=== PATIENT | male | born 1960 | race African-American/Black ===

== ENCOUNTER 2019-08-03 12:04 | Inpatient (IN) | payer MEDICAID ==
[~2019-08-03] VITALS: Ht 170.2 cm; Wt 53.1 kg
[2019-08-03] VITALS (11 sets, daily range): BP systolic 118–201; BP diastolic 51–149
[2019-08-03] MEDS ORDERED: SODIUM CHLORIDE 0.9% 1,000 ML IV ONE ×2 (12:44→19:03)
[2019-08-03] MEDS ORDERED: LORAZEPAM 2MG/ML CPJ IV ONE ×2 (12:45→18:45)
[2019-08-03 13:35] LABS: HEMATOCRIT. 43.4 % (42.0-52.0); HEMOGLOBIN. 14.6 g/dL (14.0-18.0); MEAN CORPUSCULAR HEMOGLOBIN 35.4 pg (28.0-32.0); MEAN PLATELET VOLUME 9.3 fl (7.4-10.4); PLATELET 98 x1000/uL (130-400); RED BLOOD CELL COUNT 4.13 mill/uL (4.7-6.1); RED CELL DISTRIBUTION WIDTH 12.9 % (11.6-14.6)
[2019-08-03 13:37] LABS: CHLORIDE 103 mEq/L (98-107)
[2019-08-03 13:42] LABS: ETHANOL BLOOD < 10 mg/dL
[2019-08-03 13:50] LABS: CARBAMAZEPINE < 0.5 ug/mL (4-12); PHENOBARBITAL < 2.1 ug/mL (15.0-40.0)
[2019-08-03 14:28] LABS: PLATELET ESTIMATE DECREASED
[2019-08-03] MEDS ORDERED: HALOPERIDOL LACTATE 5MG/ML VIAL IM ONE ×2 (16:30→19:15)
[2019-08-03] MEDS ORDERED: LEVETIRACETAM 1000MG/100ML 100 ML IV ONE (16:30)
[2019-08-03 16:52] LABS: CLARITY URINE CLOUDY (CLEAR); COLOR URINE YELLOW (YELLOW); KETONES URINE NEGATIVE (NEGATIVE); LEUKOCYTE ESTERASE URINE NEGATIVE (NEGATIVE); NITRITE URINE NEGATIVE (NEGATIVE); OCCULT BLOOD URINE 2+ (NEGATIVE); PH URINE 5.5 (4.5-8.0); PROTEIN URINE 2+ (NEGATIVE); SPECIFIC GRAVITY URINE 1.011 (1.005-1.030)
[2019-08-03 17:09] LABS: *BARBITURATES SCREEN URINE NEGATIVE (NEGATIVE); *BENZODIAZEPINES SCREEN URINE PRESUMTIVE POSITIVE (NEGATIVE); *COCAINE SCREEN URINE NEGATIVE (NEGATIVE)
[2019-08-03 17:10] LABS: *AMPHETAMINES SCREEN URINE NEGATIVE (NEGATIVE); CANNABINOID URINE SCREEN PRESUMTIVE POSITIVE (NEGATIVE); METHADONE URINE SCREEN NEGATIVE (NEGATIVE); OPIATES URINE SCREEN NEGATIVE (NEGATIVE); PHENCYCLIDINE URINE SCREEN NEGATIVE (NEGATIVE)
[2019-08-03] MEDS ORDERED: ONDANSETRON HCL 4MG/2ML INJ IV PRN (17:15)
[2019-08-03] MEDS ORDERED: ZOLPIDEM TARTRATE 5MG TABLET PO PRN (17:15)
[2019-08-03] MEDS ORDERED: ACETAMINOPHEN 325MG TABLET PO PRN (17:15)
[2019-08-03] MEDS ORDERED: MAGNESIUM/ALUMINUM HYDROXIDE/SIMETHICONE 30ML UDC PO PRN (17:15)
[2019-08-03] MEDS ORDERED: GUAIFENESIN 200MG/10ML SUGAR FREE UDC PO PRN (17:15)
[2019-08-03] MEDS ORDERED: NITROGLYCERIN 0.4MG TABLET SL SL PRN (17:15)
[2019-08-03] MEDS ORDERED: IPRATROPIUM/ALBUTEROL 0.5-3(2.5)MG/3ML NEB NEB PRN (17:15)
[2019-08-03] MEDS ORDERED: DOCUSATE SODIUM 100MG CAPSULE PO PRN (17:15)
[2019-08-03] MEDS: LORAZEPAM 2MG/ML CPJ IV PRN (18:07)
[2019-08-03] MEDS: CLONIDINE 0.1MG TABLET PO PRN (18:08)
[2019-08-03 18:39] LABS: VITAMIN B12 SERUM 988 pg/mL (211-911)
[2019-08-03 18:40] LABS: FOLIC ACID (FOLATE) SERUM > 20.00 ng/mL (>5.38)
[2019-08-03] MEDS: FAMOTIDINE 20MG TABLET PO SCH (22:00)
[2019-08-03] MEDS ORDERED: LEVETIRACETAM 500MG TABLET PO SCH (22:00)
[2019-08-03] MEDS: LEVETIRACETAM 500 MG in SODIUM CHLORIDE 0.9% 100 ML IV SCH (23:32)
[2019-08-04] VITALS (84 sets, daily range): BP systolic 102–198; BP diastolic 49–152
[2019-08-04] MEDS: LORAZEPAM 2MG/ML CPJ IV PRN ×4 (00:07→20:31)
[2019-08-04] MEDS: DILTIAZEM HCL 125 MG in DEXT 5% WATER 100 ML IV PRN ×2 (00:52→22:14)
[2019-08-04] MEDS: KETOROLAC 15MG/ML VIAL IV PRN ×2 (01:28→20:32)
[2019-08-04] MEDS: HALOPERIDOL LACTATE 5MG/ML VIAL IM PRN ×3 (01:28→20:58)
[2019-08-04] MEDS: DEXT 5%/0.9% NACL 1,000 ML IV SCH ×2 (03:30→11:57)
[2019-08-04] MEDS: DILTIAZEM HCL 60MG TABLET PO SCH ×2 (05:32)
[2019-08-04] MEDS: LEVETIRACETAM 500 MG in SODIUM CHLORIDE 0.9% 100 ML IV SCH ×2 (08:41→20:33)
[2019-08-04] MEDS ORDERED: ENOXAPARIN 40MG/0.4ML SYR SUBCUT SCH (09:00)
[2019-08-04 11:42] LABS: BASOPHILS % 0.4 % (0.0-2.0); EOSINOPHILS % 0.1 % (0.0-5.0); HEMATOCRIT. 39.3 % (42.0-52.0); HEMOGLOBIN. 13.2 g/dL (14.0-18.0); LYMPHOCYTES % 13.1 % (20.0-50.0); MEAN CORPUSCULAR VOLUME 104.4 fL (80.0-94.0); MEAN PLATELET VOLUME 9.7 fl (7.4-10.4); MONOCYTES % 10.8 % (2.0-8.0); NEUTROPHILS % 75.6 % (40.0-76.0); PLATELET 70 x1000/uL (130-400); RED BLOOD CELL COUNT 3.76 mill/uL (4.7-6.1); RED CELL DISTRIBUTION WIDTH 12.7 % (11.6-14.6)
[2019-08-04 11:54] LABS: CHLORIDE 111 mEq/L (98-107)
[2019-08-04] MEDS: FAMOTIDINE 20MG TABLET PO SCH (11:58)
[2019-08-04] MEDS: ASPIRIN 325MG EC TABLET PO SCH (11:59)
[2019-08-04 12:00] LABS: PHOSPHORUS 2.2 mg/dL (2.5-4.9)
[2019-08-04] MEDS ORDERED: POTASSIUM PHOS,M-BASIC-D-BASIC 15 MMOL in DEXT 5% WATER 245 ML IV NR (16:30)
[2019-08-04] MEDS ORDERED: MAGNESIUM 2 G PREMIX 50 ML IV NR (17:00)
[2019-08-04] MEDS: FAMOTIDINE 20MG/2ML VIAL IV SCH (20:31)
[2019-08-05] VITALS (64 sets, daily range): BP systolic 101–161; BP diastolic 43–100
[2019-08-05] MEDS: LORAZEPAM 2MG/ML CPJ IV PRN ×2 (01:47→23:12)
[2019-08-05] MEDS ORDERED: ATROPINE SULFATE 1MG/ML VIAL IV PRN (02:30)
[2019-08-05] MEDS: ASPIRIN 325MG EC TABLET PO SCH (10:05)
[2019-08-05] MEDS: FAMOTIDINE 20MG/2ML VIAL IV SCH (10:05)
[2019-08-05] MEDS: DEXT 5%/0.9% NACL 1,000 ML IV SCH ×2 (10:05→16:07)
[2019-08-05 10:28] LABS: BASOPHILS % 0.2 % (0.0-2.0); HEMATOCRIT. 39.5 % (42.0-52.0); HEMOGLOBIN. 13.4 g/dL (14.0-18.0); MEAN CORPUSCULAR HEMOGLOBIN 35.6 pg (28.0-32.0); MEAN CORPUSCULAR VOLUME 105.4 fL (80.0-94.0); MONOCYTES % 6.7 % (2.0-8.0); NEUTROPHILS % 82.1 % (40.0-76.0); RED BLOOD CELL COUNT 3.75 mill/uL (4.7-6.1); RED CELL DISTRIBUTION WIDTH 12.7 % (11.6-14.6)
[2019-08-05 10:33] LABS: CHLORIDE 111 mEq/L (98-107)
[2019-08-05 10:45] LABS: PHOSPHORUS 1.6 mg/dL (2.5-4.9)
[2019-08-05] MEDS: LEVETIRACETAM 500 MG in SODIUM CHLORIDE 0.9% 100 ML IV SCH ×2 (11:07→21:08)
[2019-08-05 12:30] LABS: MEAN PLATELET VOLUME 9.3 fl (7.4-10.4); PLATELET 52 x1000/uL (130-400)
[2019-08-05] MEDS ORDERED: POTASSIUM PHOS,M-BASIC-D-BASIC 30 MMOL in DEXT 5% WATER 500 ML IV ONE (12:30)
[2019-08-05] MEDS: DILTIAZEM HCL 60MG TABLET PO SCH ×2 (14:01→21:10)
[2019-08-06] VITALS (46 sets, daily range): BP systolic 114–171; BP diastolic 32–109
[2019-08-06] MEDS: HALOPERIDOL LACTATE 5MG/ML VIAL IM PRN (02:30)
[2019-08-06] MEDS: DILTIAZEM HCL 60MG TABLET PO SCH ×3 (05:57→21:06)
[2019-08-06] MEDS: DEXT 5%/0.9% NACL 1,000 ML IV SCH (05:59)
[2019-08-06] MEDS: ASPIRIN 325MG EC TABLET PO SCH (08:22)
[2019-08-06] MEDS: FAMOTIDINE 20MG/2ML VIAL IV SCH (08:22)
[2019-08-06] MEDS: NICOTINE 14MG PATCH TD SCH (08:23)
[2019-08-06] MEDS: LEVETIRACETAM 500 MG in SODIUM CHLORIDE 0.9% 100 ML IV SCH ×2 (08:23→21:06)
[2019-08-06] MEDS: LORAZEPAM 2MG/ML CPJ IV PRN (17:19)
[2019-08-07] VITALS (45 sets, daily range): BP systolic 128–182; BP diastolic 40–129
[2019-08-07] MEDS: LORAZEPAM 2MG/ML CPJ IV PRN ×5 (00:12→22:14)
[2019-08-07] MEDS: CLONIDINE 0.1MG TABLET PO PRN ×3 (04:20→21:18)
[2019-08-07] MEDS: HALOPERIDOL LACTATE 5MG/ML VIAL IM PRN ×2 (04:40→12:59)
[2019-08-07] MEDS: DILTIAZEM HCL 60MG TABLET PO SCH ×3 (05:05→21:18)
[2019-08-07] MEDS: FAMOTIDINE 20MG/2ML VIAL IV SCH (08:51)
[2019-08-07] MEDS: ASPIRIN 325MG EC TABLET PO SCH (08:52)
[2019-08-07] MEDS: NICOTINE 14MG PATCH TD SCH (08:52)
[2019-08-07] MEDS: LEVETIRACETAM 500 MG in SODIUM CHLORIDE 0.9% 100 ML IV SCH ×2 (08:52→21:18)
[2019-08-07 13:46] LABS: BASOPHILS % 0.3 % (0.0-2.0); EOSINOPHILS % 0.4 % (0.0-5.0); HEMATOCRIT. 40.6 % (42.0-52.0); HEMOGLOBIN. 13.7 g/dL (14.0-18.0); LYMPHOCYTES % 19.4 % (20.0-50.0); MEAN CORPUSCULAR HEMOGLOBIN 35.4 pg (28.0-32.0); MEAN CORPUSCULAR VOLUME 104.8 fL (80.0-94.0); MEAN PLATELET VOLUME 9.6 fl (7.4-10.4); MONOCYTES % 13.7 % (2.0-8.0); NEUTROPHILS % 66.2 % (40.0-76.0); PLATELET 84 x1000/uL (130-400); RED BLOOD CELL COUNT 3.87 mill/uL (4.7-6.1); RED CELL DISTRIBUTION WIDTH 12.4 % (11.6-14.6)
[2019-08-07 14:15] LABS: CHLORIDE 106 mEq/L (98-107)
[2019-08-07 14:28] LABS: PHOSPHORUS 3.1 mg/dL (2.5-4.9)
[2019-08-08] VITALS (38 sets, daily range): BP systolic 103–194; BP diastolic 60–135
[2019-08-08] MEDS: LORAZEPAM 2MG/ML CPJ IV PRN (02:41)
[2019-08-08] MEDS: DILTIAZEM HCL 60MG TABLET PO SCH ×3 (06:12→21:52)
[2019-08-08] MEDS: CLONIDINE 0.1MG TABLET PO PRN (06:12)
[2019-08-08] MEDS: FAMOTIDINE 20MG/2ML VIAL IV SCH (08:34)
[2019-08-08] MEDS: LEVETIRACETAM 500 MG in SODIUM CHLORIDE 0.9% 100 ML IV SCH ×2 (08:34→21:51)
[2019-08-08] MEDS: NICOTINE 14MG PATCH TD SCH (08:34)
[2019-08-08] MEDS: MULTIVITAMINS,THER W-MINERALS TABLET PO SCH (08:41)
[2019-08-08] MEDS: ASPIRIN 325MG EC TABLET PO SCH (08:42)
[2019-08-08] MEDS ORDERED: SODIUM CHLORIDE 0.9% IV SCH (10:00)
[2019-08-08] MEDS ORDERED: THIAMINE HCL IV SCH (10:00)
[2019-08-08] MEDS: METOPROLOL TARTRATE 25MG TABLET PO SCH ×2 (10:15→21:51)
[2019-08-08] MEDS ORDERED: CLONIDINE 0.1MG TABLET PO PRN (10:15)
[2019-08-08] MEDS: FOLIC ACID 1MG TABLET PO SCH (18:47)
[2019-08-08] MEDS: THIAMINE HCL 100MG TABLET PO SCH (18:48)
[2019-08-09] VITALS (22 sets, daily range): BP systolic 95–126; BP diastolic 58–97
[2019-08-09] MEDS: DILTIAZEM HCL 60MG TABLET PO SCH ×3 (06:17→22:00)
[2019-08-09] MEDS: LEVETIRACETAM 500 MG in SODIUM CHLORIDE 0.9% 100 ML IV SCH ×2 (08:24→23:07)
[2019-08-09] MEDS: FAMOTIDINE 20MG/2ML VIAL IV SCH (08:25)
[2019-08-09] MEDS: NICOTINE 14MG PATCH TD SCH (08:25)
[2019-08-09] MEDS: MULTIVITAMINS,THER W-MINERALS TABLET PO SCH (08:26)
[2019-08-09] MEDS: METOPROLOL TARTRATE 25MG TABLET PO SCH ×2 (08:26→21:00)
[2019-08-09] MEDS: FOLIC ACID 1MG TABLET PO SCH (08:26)
[2019-08-09] MEDS: THIAMINE HCL 100MG TABLET PO SCH (08:26)
[2019-08-09] MEDS: ASPIRIN 325MG EC TABLET PO SCH (08:26)
[2019-08-09 10:18] LABS: BASOPHILS % 0.4 % (0.0-2.0); EOSINOPHILS % 1.3 % (0.0-5.0); HEMATOCRIT. 40.3 % (42.0-52.0); HEMOGLOBIN. 13.8 g/dL (14.0-18.0); LYMPHOCYTES % 20.5 % (20.0-50.0); MEAN CORPUSCULAR HEMOGLOBIN 35.6 pg (28.0-32.0); MEAN CORPUSCULAR VOLUME 104.1 fL (80.0-94.0); MEAN PLATELET VOLUME 8.9 fl (7.4-10.4); MONOCYTES % 14.8 % (2.0-8.0); PLATELET 131 x1000/uL (130-400); RED BLOOD CELL COUNT 3.87 mill/uL (4.7-6.1); RED CELL DISTRIBUTION WIDTH 12.5 % (11.6-14.6)
[2019-08-09 10:25] LABS: CHLORIDE 108 mEq/L (98-107)
[2019-08-10] VITALS: BP 135/78
[2019-08-10 04:00] VITALS: BP 129/82
[2019-08-10] MEDS: DILTIAZEM HCL 60MG TABLET PO SCH ×3 (06:27→21:49)
[2019-08-10 08:00] VITALS: BP 123/88
[2019-08-10] MEDS: MULTIVITAMINS,THER W-MINERALS TABLET PO SCH (08:21)
[2019-08-10] MEDS: FAMOTIDINE 20MG/2ML VIAL IV SCH (08:21)
[2019-08-10] MEDS: LEVETIRACETAM 500 MG in SODIUM CHLORIDE 0.9% 100 ML IV SCH ×2 (08:21→21:48)
[2019-08-10] MEDS: FOLIC ACID 1MG TABLET PO SCH (08:22)
[2019-08-10] MEDS: THIAMINE HCL 100MG TABLET PO SCH (08:22)
[2019-08-10] MEDS: NICOTINE 14MG PATCH TD SCH (08:22)
[2019-08-10] MEDS: METOPROLOL TARTRATE 25MG TABLET PO SCH ×2 (08:22→21:49)
[2019-08-10] MEDS: ASPIRIN 325MG EC TABLET PO SCH (08:22)
[2019-08-10 12:00] VITALS: BP 100/73
[2019-08-10 16:00] VITALS: BP 106/77
[2019-08-10 20:00] VITALS: BP 113/82
[2019-08-11] VITALS: BP 112/80
[2019-08-11 04:00] VITALS: BP 127/83
[2019-08-11] MEDS: DILTIAZEM HCL 60MG TABLET PO SCH ×3 (05:58→13:25)
[2019-08-11 08:00] VITALS: BP 115/88
[2019-08-11] MEDS ORDERED: THIAMINE HCL 100MG TABLET PO SCH (09:00)
[2019-08-11] MEDS: LEVETIRACETAM 500 MG in SODIUM CHLORIDE 0.9% 100 ML IV SCH ×2 (09:34→23:05)
[2019-08-11] MEDS: NICOTINE 14MG PATCH TD SCH (09:35)
[2019-08-11] MEDS: ASPIRIN 325MG EC TABLET PO SCH (09:35)
[2019-08-11] MEDS: MULTIVITAMINS,THER W-MINERALS TABLET PO SCH (09:35)
[2019-08-11] MEDS: FAMOTIDINE 20MG/2ML VIAL IV SCH (09:35)
[2019-08-11] MEDS: METOPROLOL TARTRATE 25MG TABLET PO SCH ×2 (09:37→23:05)
[2019-08-11] MEDS: THIAMINE HCL 100MG TABLET PO SCH (09:38)
[2019-08-11] MEDS: FOLIC ACID 1MG TABLET PO SCH (09:38)
[2019-08-11 12:00] VITALS: BP 101/77
[2019-08-11 16:00] VITALS: BP 114/81
[2019-08-11 20:00] VITALS: BP 128/87
[2019-08-12] VITALS (7 sets, daily range): BP systolic 105–138; BP diastolic 45–93
[2019-08-12] MEDS: DILTIAZEM HCL 60MG TABLET PO SCH ×2 (06:02→13:38)
[2019-08-12] MEDS: FAMOTIDINE 20MG/2ML VIAL IV SCH (09:25)
[2019-08-12] MEDS: ASPIRIN 325MG EC TABLET PO SCH (09:25)
[2019-08-12] MEDS: MULTIVITAMINS,THER W-MINERALS TABLET PO SCH (09:25)
[2019-08-12] MEDS: FOLIC ACID 1MG TABLET PO SCH (09:25)
[2019-08-12] MEDS: NICOTINE 14MG PATCH TD SCH (09:25)
[2019-08-12] MEDS: THIAMINE HCL 100MG TABLET PO SCH (09:25)
[2019-08-12] MEDS: LEVETIRACETAM 500 MG in SODIUM CHLORIDE 0.9% 100 ML IV SCH (09:25)
[2019-08-12] MEDS: METOPROLOL TARTRATE 25MG TABLET PO SCH (09:26)
[2019-08-12] MEDS ORDERED: LEVETIRACETAM 500MG/5ML CUP PO SCH (21:00)
== END 2019-08-12 17:06 | DRG 53 ==
LOC: ER 12:15 → MICUNO 16:43 → EDBEDREQ 18:49 → EDBEDREQSVC 18:49 → EDBEDREQTM 18:49 → ENRESERV 19:35 → 6EST 08-09 18:18
PROVIDERS: ADMIT Internal Medicine; ATTEND Internal Medicine
DX: G40.909 Epilepsy, unspecified, not intractable, without status epilepticus (principal); G92 Toxic encephalopathy; E44.0 Moderate protein-calorie malnutrition; N17.9 Acute kidney failure, unspecified; I47.1 Supraventricular tachycardia; E87.1 Hypo-osmolality and hyponatremia; I10 Essential (primary) hypertension; F10.20 Alcohol dependence, uncomplicated; J44.9 Chronic obstructive pulmonary disease, unspecified; Z78.1 Physical restraint status; R45.1 Restlessness and agitation; F19.10 Other psychoactive substance abuse, uncomplicated; R74.0 Nonspecific elevation of levels of transaminase and lactic acid dehydrogenase [LDH]; Z68.1 Body mass index [BMI] 19.9 or less, adult
CPT/HCPCS: 36415; 71045; 80048; 80061; 80156; 80165; 80184; 80185; 80305; 80320; 81003; 82607; 82746; 82962; 83036; 83540; 83550; 83735; 84100; 93005; 93970; 97163; 97166; 99285; J1630; J1650; J1885; J1953; J2060; J2405; J3411; J3475; J3490; J7030; J7040; J7042; J7050; J7060; A4315; G0480